=== PATIENT | female | born 1955 | race Caucasian/White ===

== ENCOUNTER 2019-07-06 13:52 | Emergency (ER) | payer OTHER ==
[~2019-07-06] VITALS: Ht 157.5 cm; Wt 59.0 kg
[~2019-07-06 13:52] MED LIST: ACCUPRIL40 MG PO; ALDACTONE25 MG PO; AMBIEN 10 MG TA10 MG PO; BYSTOLIC 5 MG5 M1 PO; DIABETA 5MG TABL5 MG PO; DILTIAZEM ER240 M1 PO; EFFEXOR XR150 MG PO; LASIX 40 MG TAB40 M1 PO; METFORMIN 500500 MG PO; NOVOLOG100 UNIT/1 SQ; SIMVASTATIN20 MG PO; XANAX 0.5 MG0.5 M1 PO
[2019-07-06 14:27] LABS: BASOPHILS 0.4 % (0.0-2.0); EOSINOPHILS 3.7 % (0.0-3.0); HEMATOCRIT 37.3 % (37.0-47.0); HEMOGLOBIN 11.9 gm/dL (12.0-15.0); LYMPHOCYTES 19.3 % (24.0-44.0); MCH 28.1 pg (26.0-34.0); MCV 87.7 fL (80.0-100.0); MONOCYTES 7.9 % (1.0-8.0); PLATELET COUNT 144 thou/uL (150-400); POLYS 68.7 % (36.0-66.0); RBC 4.26 mil/uL (4.20-5.00); RDW 17.9 % (10.5-14.5); WBC 5.9 thou/uL (4.0-11.0)
[2019-07-06 14:36] LABS: ANION GAP 5 mmol/L (7-16); BUN 14 mg/dL (7-18); CALCIUM 8.9 mg/dL (8.5-10.1); CHLORIDE 98 mmol/L (98-107); CO2 31 mmol/L (21-32); CREATININE 2.6 mg/dL (0.6-1.0); GLUCOSE 156 mg/dL (74-106); POTASSIUM 4.3 mmol/L (3.5-5.1); SODIUM 134 mmol/L (136-145)
[2019-07-06 14:46] LABS: ALBUMIN 2.8 g/dL (3.4-5.0); LIPASE 126 U/L (73-393); SGOT 20 U/L (15-37); SGPT 9 U/L (30-65); TOTAL BILIRUBIN 0.3 mg/dL (<0.1-1.0); TOTAL PROTEIN 6.3 g/dL (6.4-8.2); TROPONIN-I <0.06 ng/mL (<0.06)
[2019-07-06 14:55] LABS: MAGNESIUM 1.7 mg/dL (1.8-2.4); PHOSPHORUS 2.2 mg/dL (2.5-4.9)
[2019-07-06] MEDS ORDERED: ONDANSETRON HCL4 M2 PO (16:41)
[2019-07-06 17:15] VITALS: BP 120/39
--- NOTE | 2019-07-08 12:14 | EKG ---
[address] [place] [address] ELECTROCARDIOGRAM REPORT Name: ORLANDO PRITCHETT Room #: [facility]P [facility] [id number] Admission: 07/06/19 Attend Phys: Discharge: 07/06/19 Date of : 53 Report #: [id number] THIS REPORT FOR: //name// [facility] ED Test Date: 2019-07-06 Test Time: 14:15:59 Pat Name: ORLANDO PRITCHETT Department: Room: Gender: F Nurse Practitioner Physician Assistant: : 1955 Requested By: Christian Moody Order Number: [id number] MD: Tam Bailey Measurements Intervals [place] Rate: 59 P: 31 RI: 144 QRS: 47 QRSD: 95 T: 106 QT: 466 QTc: 462 Interpretive Statements Sinus rhythm Probable anteroseptal infarct, recent Lateral leads are also involved Compared to ECG 12/17/2009 11:35:10 Atrial abnormality no longer present Left ventricular hypertrophy no longer present Myocardial infarct finding still present Electronically Signed On 07-08-2019 12:14:18 INSEMINATOR by Tam Bailey [email or web address] <ELECTRONICALLY SIGNED> By: Tam Bailey MD 07/08/19 1214 1415 141 Tam Bailey MD /ELAYNE
== END 2019-07-06 17:16 | disposition home or self-care (01) ==
LOC: ER 13:52
PROVIDERS: Physician Assistant
DX: R11.2 Nausea with vomiting, unspecified (principal); N18.6 End stage renal disease; I12.0 Hypertensive chronic kidney disease with stage 5 chronic kidney disease or end stage renal disease; E11.22 Type 2 diabetes mellitus with diabetic chronic kidney disease; F32.9 Major depressive disorder, single episode, unspecified; Z99.2 Dependence on renal dialysis; Z79.4 Long term (current) use of insulin; Z90.49 Acquired absence of other specified parts of digestive tract; Z90.710 Acquired absence of both cervix and uterus; Z86.73 Personal history of transient ischemic attack (TIA), and cerebral infarction without residual deficits; Z88.1 Allergy status to other antibiotic agents; Z88.2 Allergy status to sulfonamides

== ENCOUNTER → 2019-07-12 | Outpatient (CLI) | payer OTHER ==
[~2019-07-12] MED LIST changes: +ONDANSETRON HCL4 M2 PO
== END ==
LOC: CAT
DX: K43.9 Ventral hernia without obstruction or gangrene (principal); J98.11 Atelectasis; J90 Pleural effusion, not elsewhere classified; K44.9 Diaphragmatic hernia without obstruction or gangrene; N26.1 Atrophy of kidney (terminal); Z90.49 Acquired absence of other specified parts of digestive tract; I70.0 Atherosclerosis of aorta; Z90.710 Acquired absence of both cervix and uterus

== ENCOUNTER → 2019-08-03 | Outpatient (CLI) | payer BC, OTHER ==
[~2019-08-03] MED LIST changes: +ARICEPT10 M1 PO; +ASPIR 8181 M1 PO; +CARVEDILOL25 MG PO; +COLACE100 MG PO; +HUMALOG100 UNIT/1 SUBQ; +HYDRALAZINE HC100 MG PO; +LEXAPRO 10 MG T10 M1 PO; +LIPITOR40 MG PO; +MIRALAX119 GM PO; +NORVASC10 MG PO; +PERCOCET 5-3251 EACH PO; +PROMS25 WY RECTAL; +PROTONIX40 M1 PO; +REGLAN 5 MG TAB5 MG PO; +RENAL CAPS SOFTG1 MG PO; +RENVELA800 MG PO; +TYLENOL WITH CO1 TA1 PO; +TYLENOL325 M1 PO; +VITAMIN B-121000 MC3 PO; +XYZAL5 MG PO; +ZOFRAN8 MG PO
--- NOTE | 2019-08-08 11:07 | PATH ---
[facility] [place] [address] PATHOLOGY RPT PROCEDURE Name: TIERRA WEEKS Room #: REG DELMA Esteban.#: [id number] Admission: 08/03/19 Date of : 53 Discharge: Report #: [id number] Path Case #: [id number] [facility] Accession Number: [id number] . 01 Material submitted: . PART A: duodenum - BIOPSY OF DUODENUM R/O SPRUE PART B: stomach - GASTRIC BIOPSY R/O H. PYLORI . 01 Clinical history: . Nausea A. R/O sprue B. R/O H. pylori . 02 Diagnosis: A. Small bowel mucosa, duodenum, endoscopic biopsy: - No diagnostic abnormalities present. - Negative for villous blunting or increase in intraepithelial lymphocytes. . B. Gastric mucosa, gastric rule out H. pylori, endoscopic biopsy: - Mild chronic gastritis. - Negative for intestinal metaplasia or atrophy. - Negative for Helicobacter pylori (properly controlled immunohistochemical stain performed). . (IUV:mateo; 08/05/2019) MBR 08/05/2019 1211 Local . 02 Electronically signed: . Talita Rodriguez MD, Pathologist NPI- [id number] . 01 Gross description: . A. The specimen is received in formalin, labeled "Tierra Leonardozahida, biopsy of duodenum, R/O sprue". Received are five segments of pale nuñez soft tissue ranging in size from 0.2 to 0.4 cm in maximum dimensions. The specimen is submitted entirely in cassette A1. . B. The specimen is received in formalin, labeled "Tierra Weeks, gastric biopsy, R/O H. pylori". Received are three segments of pale nuñez soft tissue ranging in size from 0.3 to 0.7 cm in maximum dimensions. The specimen is submitted entirely in cassette B1. (CAA; 08/04/2019) QA/[facility] 08/04/2019 0834 Local . 02 Pathologist provided ICD-10: K29.50, R11.0 [place] [address] PATHOLOGY RPT PROCEDURE Name: YARELYTIERRA Room #: REG CLGalilea Valero#: [id number] Admission: 08/03/19 Date of : 53 Discharge: Report #: [id number] Path Case #: [id number] . 02 CPT . 825311, [id number], [id number] Specimen Comment: A courtesy copy of this report has been sent to [phone] Specimen Comment: [phone] Specimen Comment: Report sent to / DR TOBIN Specimen Comment: A duplicate report has been generated due to demographic updates. Performed at: [address], [place] [id number] MD Freeman Louise MD Phone: [phone] Performed at: [address] [id number] MD Talita Rodriguez MD Phone: [phone]
--- NOTE | 2019-08-08 11:57 | P ---
[facility] [place] [address] [place] [address] PROCEDURE REPORT Name: ORLANDO PRITCHETT Room #: REG DELMA Marylu#: [id number] Admission: 08/03/19 Attend Phys: Teja Bishop Discharge: Date of : 53 Report #: [id number] THIS REPORT FOR: //name// CC: Teja Winters DATE OF SERVICE: 08/03/2019 PROCEDURE PERFORMED: Upper endoscopy with biopsies. HISTORY OF PRESENT ILLNESS: The patient is a 64-year-old female who was seen by myself in the office for recurrent nausea and vomiting on 07/14/2019. Symptoms have been ongoing for several months. She denies any new change in medications at that time. She has end-stage renal disease, on hemodialysis, insulin-dependent diabetes. No previous history of endoscopy. She is on narcotics as well. The plan at that time was to start Zofran 8 mg on a daily basis and then proceed with an EGD and a gastric emptying study as well. DESCRIPTION OF PROCEDURE: The risks and benefits of the procedure were explained to the patient, those risks including but not limited to bleeding, perforation and the risk of sedation. She understood these risks and gave informed consent. Sedation was given using propofol per anesthesia. Next, using a standard Olympus upper endoscope, the scope was placed in the patient's mouth and advanced under direct vision through the esophagus, stomach and into the second portion of the duodenum. The larynx was normal in appearance. The esophagus was normal throughout. The GE junction was normal. Upon entering the stomach, a medium-sized hiatal hernia was noted. Overall, the gastric mucosa was normal. Biopsies were obtained to rule out H. pylori. The pylorus was normal and patent. The duodenal bulb, first and second portion were all normal. Biopsies of the duodenum were also obtained to rule out the possibility of celiac sprue. The scope was then withdrawn and the procedure terminated. The patient tolerated the procedure well. IMPRESSION: 1. Hiatal hernia. 2. Otherwise, normal upper endoscopy. RECOMMENDATIONS: 1. Await biopsy results. 2. The patient's family is to verify if she is actually getting Zofran 8 mg on a daily basis. 3. Plan is also to proceed with a gastric emptying time in the near future. [address] [address] PROCEDURE REPORT Name: VILLARREALETRA Room #: REG DELMA Valero#: [id number] Admission: 08/03/19 Attend Phys: Teja Bishop Discharge: Date of : 53 Report #: [id number] Thank you for allowing me to participate in her care. <ELECTRONICALLY SIGNED> By: Teja Kaba MD 08/08/19 1157 1125 1252 Teja Kaba MD /nt
== END | disposition home or self-care (01) ==
LOC: GI 06:46
DX: R11.2 Nausea with vomiting, unspecified (principal); K29.50 Unspecified chronic gastritis without bleeding; K44.9 Diaphragmatic hernia without obstruction or gangrene; K21.9 Gastro-esophageal reflux disease without esophagitis; I13.0 Hypertensive heart and chronic kidney disease with heart failure and stage 1 through stage 4 chronic kidney disease, or unspecified chronic kidney disease; E11.22 Type 2 diabetes mellitus with diabetic chronic kidney disease; N18.6 End stage renal disease; I50.9 Heart failure, unspecified; E78.5 Hyperlipidemia, unspecified; F32.9 Major depressive disorder, single episode, unspecified; F03.90 Unspecified dementia, unspecified severity, without behavioral disturbance, psychotic disturbance, mood disturbance, and anxiety; D64.9 Anemia, unspecified; Z98.890 Other specified postprocedural states; Z79.899 Other long term (current) drug therapy; Z86.73 Personal history of transient ischemic attack (TIA), and cerebral infarction without residual deficits; Z90.710 Acquired absence of both cervix and uterus; Z99.2 Dependence on renal dialysis; Z88.2 Allergy status to sulfonamides; Z88.8 Allergy status to other drugs, medicaments and biological substances; Z79.82 Long term (current) use of aspirin; Z79.4 Long term (current) use of insulin
CPT/HCPCS: 62110; 62900